=== PATIENT | female | born 2000 | race Caucasian/White ===

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

== ENCOUNTER 2019-04-12 02:14 | Emergency (ER) | payer SELFPAY ==
[~2019-04-12] VITALS: Ht 165.1 cm; Wt 50.9 kg
[~2019-04-12 02:14] MED LIST: DESYREL 50MG50 MG PO
[2019-04-12 02:23] VITALS: TEMP 98.1
[2019-04-12 02:47] LABS: BASO % 0.3 % (0.0-2.0); EOS % 0.5 % (0-4.0); GRAN % 50.7 % (42.2-75.2); HEMATOCRIT 41.5 % (35.0-45.0); HEMOGLOBIN 14.3 g/dl (12.0-15.0); LYMPH # 2.4 (1.2-3.4); LYMPH % 40.9 % (20.0-51.0); MEAN CELL VOLUME 79 fl (80.0-95.0); MEAN CORPUSCULAR HEMOGLOBIN 27 pg (26.0-32.0); MEAN CORPUSCULAR HGB CONC 35 g/dl (33.0-37.0); MEAN PLATELET VOLUME 10.9 fl (7.4-10.4); MONO # 0.4 (0.1-0.6); MONO % 7.4 % (1.7-9.3); PLATELET COUNT 334 K/mm3 (130-400); RED BLOOD COUNT 5.24 M/mm3 (4.10-5.30); REDCELL DISTRIBUTION WIDTH-CV 11.9 % (11.5-14.5)
[2019-04-12 02:51] LABS: TRICYCLIC ANTIDEPRESS URINE NEGATIVE
[2019-04-12 02:51] LABS: ALBUMIN 5.1 gm/dL (3.5-5.0); BILIRUBIN,TOTAL 0.4 mg/dL (0.0-1.0); CALCIUM 10.2 mg/dL (8.4-10.2); CREATININE, serum 0.49 (0.52-1.25); POTASSIUM 3.8 mmol/L (3.4-5.0); TOTAL PROTEIN 8.4 gm/dL (6.4-8.2)
[2019-04-12 04:20] VITALS: BP 106/75; PULSE 99
== END 2019-04-12 04:20 | disposition home or self-care (01) ==
LOC: COL.ER 02:14
PROVIDERS: Emergency Medicine
DX: G40.909 Epilepsy, unspecified, not intractable, without status epilepticus (principal); F10.920 Alcohol use, unspecified with intoxication, uncomplicated; Y90.1 Blood alcohol level of 20-39 mg/100 ml
CPT/HCPCS: J2060; J2405; J7030

== ENCOUNTER 2020-01-19 03:38 | Emergency (ER) | payer MEDICAID ==
[~2020-01-19] VITALS: Ht 162.6 cm; Wt 50.9 kg
[2020-01-19 03:52] VITALS: TEMP 98.8
[2020-01-19 03:57] LABS: BASO % 0.4 % (0.0-2.0); EOS # 0.1 (0.0-0.7); EOS % 0.9 % (0-4.0); GRAN # 3.2 (1.4-6.5); GRAN % 43.4 % (42.2-75.2); HEMATOCRIT 41.9 % (37.0-47.0); HEMOGLOBIN 14.4 g/dl (12.5-16.0); LYMPH # 3.5 (1.2-3.4); LYMPH % 47.1 % (20.0-51.0); MEAN CELL VOLUME 83 fl (80.0-100.0); MEAN CORPUSCULAR HEMOGLOBIN 28 pg (27.0-31.0); MEAN CORPUSCULAR HGB CONC 34 g/dl (33.0-37.0); MEAN PLATELET VOLUME 11.3 fl (7.4-10.4); MONO # 0.6 (0.1-0.6); MONO % 7.9 % (1.7-9.3); PLATELET COUNT 242 K/mm3 (130-400); RED BLOOD COUNT 5.08 M/mm3 (4.10-5.30); REDCELL DISTRIBUTION WIDTH-CV 11.9 % (11.5-14.5)
[2020-01-19 04:05] LABS: ALANINE AMINOTRANSFERASE 15 U/L (4-34); ALKALINE PHOSPHATASE 88 U/L (50-136); ANION GAP 12 mmol/L (7-16); AST,SGOT 24 U/L (15-37); BLOOD UREA NITROGEN 9 mg/dL (7-17); CALCIUM 10.1 mg/dL (8.4-10.2); CARBON DIOXIDE 26 mmol/L (22-30); CHLORIDE 101 mmol/L (98-107); CREATINE KINASE 73 U/L (30-135); CREATININE, serum 0.65 (0.52-1.25); GLUCOSE 90 mg/dL (74-106); POTASSIUM 3.7 mmol/L (3.4-5.0); SODIUM 139 mmol/L (137-145); TOTAL PROTEIN 8.6 gm/dL (6.4-8.2)
[2020-01-19 04:08] LABS: ALCOHOL(ethanol),MEDICAL < 10 mg/dL
[2020-01-19 04:28] LABS: VALPROIC ACID (DEPAKENE) < 10.0 ug/mL (50.0-100.0)
[2020-01-19 04:43] LABS: COLLECTION METHOD CLEAN CATCH
[2020-01-19 04:52] LABS: MUCOUS Present /lpf; PH 8 (5-8); SQUAMOUS EPITHELIAL 0-2 /hpf; URINE APPEARANCE Clear; URINE BACTERIA Rare /hpf; URINE BILIRUBIN Negative (NEGATIVE); URINE BLOOD Negative (NEGATIVE); URINE COLOR Yellow; URINE GLUCOSE Negative (NEGATIVE); URINE KETONE Negative (NEGATIVE); URINE LEUKOCYTE ESTERASE Negative (NEGATIVE); URINE NITRATE Positive (NEGATIVE); URINE PROTEIN(semi-quant) Negative (NEGATIVE); URINE UROBILINOGEN Negative (NEGATIVE)
[2020-01-19 05:02] LABS: TRICYCLIC ANTIDEPRESS URINE NEGATIVE
[2020-01-19] MEDS ORDERED: DEPAKOTE 250MG250 MG PO (05:07)
[2020-01-19 06:15] VITALS: BP 110/76; PULSE 73
== END 2020-01-19 06:38 | disposition home or self-care (01) ==
LOC: COL.ER 03:38
PROVIDERS: Emergency Medicine
DX: R41.82 Altered mental status, unspecified (principal)
CPT/HCPCS: J2405; J7030